=== PATIENT | female | born 1985 | race American Indian/Alaskan Native ===

== ENCOUNTER 2021-04-17 07:17 | Inpatient (IN) | payer MEDICAID ==
[2021-04-17] MEDS ORDERED: Sodium Chloride 0.9% 10 ML Syringe FLUSH PRN (07:46)
[2021-04-17] MEDS ORDERED: Lidocaine 1% 50 ML MDV INJECT PRN (07:46)
[2021-04-17] MEDS ORDERED: Nalbuphine 10 MG/1 ML Vial IVPUSH PRN (07:46)
[2021-04-17] MEDS ORDERED: Oxytocin/Lactated Ringers 10 UNIT/1,000 ML BAG IV SCH (08:00)
[2021-04-17] MEDS ORDERED: Lactated Ringers 1,000 ML IV SCH (08:00)
--- NOTE | 2021-04-17 08:56 | PCM.LDHP ---
L&D History of Present Illness - General Date of Service: 04/17/21 Admit Problem/Dx: Patient Status Order with Admit Dx/Problem 04/17/21 08:24 Admission Status [Patient Status] [ADT] Routine Admission Diagnosis/Problem Admission Diagnosis/Problem - History of Present Illness Introduction:: 36 year old female here in active labor at 41 weeks. Sparse care with myself complicated by elevated one hour no three hour. Ultrasound in third trimester did not demonstrate macrosomia. - Related Data Allergies/Adverse Reactions: Allergies Allergy/AdvReac Type Severity Reaction Status Date / Time No Known Allergies Allergy Verified 04/17/21 07:28 H&P Review of Systems - Review of Systems: Review Of Systems: See Below General: Reports: No Symptoms HEENT: Reports: No Symptoms Pulmonary: Reports: No Symptoms Cardiovascular: Reports: No Symptoms Gastrointestinal: Reports: No Symptoms Genitourinary: Reports: No Symptoms Musculoskeletal: Reports: No Symptoms Skin: Reports: No Symptoms Psychiatric: Reports: No Symptoms Neurological: Reports: No Symptoms Hematologic/Lymphatic: Reports: No Symptoms Immunologic: Reports: No Symptoms L&D Exam - Exam Exam: See Below - Vital Signs Vital Signs: Last Vital Signs Temp Pulse 89 04/17/21 08:30 Resp BP Pulse Ox Weight: 99.337 kg - OB Specific Contraction Intensity: Strong Movement: Active Heart Tones: Present Heart Rate (FHR) Variability: Moderate (6-25 bmp) Presentation: Vertex - Ng Score Ng Score Cervix Position: Anterior Ng Score Effacement: >80% Ng Score Dilation: 1-2 cm Ng Score 's Station: -3 - Exam General: Alert, Oriented HEENT: PERRLA, Conjunctiva Clear, EACs Clear, EOMI, Hearing Intact, Mucosa Moist & [place], Nares Patent, Normal Nasal Septum, Posterior Pharynx Clear, TMs Clear Neck: Supple, Trachea Midline Lungs: Clear to Auscultation, Normal Respiratory Effort Cardiovascular: Regular Rate, Regular Rhythm GI/Abdominal Exam: Normal Bowel Sounds, Soft, Non-Tender, No Organomegaly, No Distention, No Abnormal Bruit Back Exam: Normal Inspection Extremities: Normal Inspection, Normal Range of Motion, Non-Tender, No Pedal Edema, Normal Capillary Refill Skin: Warm, Dry, Intact Neurological: Cranial Nerves Intact, Reflexes Equal Bilateral Psychiatric: Alert, Normal Affect, Normal Mood - Patient Data Lab Results Last 24 hrs: Laboratory Results - last 24 hr 04/17/21 04/17/21 Range/Units 07:40 08:09 WBC 9.07 (3.98-10.04) K/mm3 RBC 3.90 L (3.98-5.22) M/mm3 Hgb 10.7 L (11.2-15.7) gm/dl Hct 33.2 L (34.1-44.9) % MCV 85.1 (79.4-94.8) fl MCH 27.4 (25.6-32.2) pg MCHC 32.2 (32.2-35.5) g/dl RDW Std Deviation 45.4 (36.4-46.3) fL Plt Count 300 (182-369) K/mm3 MPV 10.7 (9.4-12.3) fl Neut % (Auto) 66.0 (34.0-71.1) % Lymph % (Auto) 28.7 (19.3-51.7) % [place] % (Auto) 3.9 L (4.7-12.5) % Eos % (Auto) 0.9 (0.7-5.8) Baso % (Auto) 0.3 (0.1-1.2) % Neut # (Auto) 5.99 (1.56-6.13) K/mm3 Lymph # (Auto) 2.60 (1.18-3.74) K/mm3 [place] # (Auto) 0.35 (0.24-0.36) K/mm3 Eos # (Auto) 0.08 (0.04-0.36) K/mm3 Baso # (Auto) 0.03 (0.01-0.08) K/mm3 SARS-CoV-2 RNA (MERRY) Negative (NEGATIVE) Result Diagrams: 04/17/21 08:09 Problem List Initiated/Reviewed/Updated: Yes Orders Last 24hrs: Active Orders 24 hr Category Date Time Status Admission Status [Patient Status] [ADT] Routine ADT 04/17/21 08:24 Active Activity as Tolerated [RC] PFP Care 04/17/21 07:46 Active Communication Order [RC] ASDIRECTED Care 04/17/21 07:46 Active Heart Tones [RC] ASDIRECTED Care 04/17/21 07:48 Active Notify Provider [RC] PFP Care 04/17/21 07:46 Active Notify Provider [RC] PRN Care 04/17/21 07:46 Active Peripheral IV Care [RC] . DIRECTED Care 04/17/21 07:48 Active Vital Signs [RC] PER UNIT ROUTINE Care 04/17/21 07:28 Active Regular Diet [DIET] Diet 04/17/21 Breakfast Active RAPID PLASMA REAGIN,RPR [CHEM] Routine Lab 04/17/21 08:09 Received Lactated Ringers [Ringers, Lactated] 1,000 ml Med 04/17/21 08:00 Active IV ASDIRECTED Lidocaine 1% [Xylocaine 1%] Med 04/17/21 07:46 Active 50 ml INJECT ONETIME PRN Nalbuphine [Nubain] Med 04/17/21 07:46 Active 10 mg IVPUSH Q2H PRN Oxytocin/Lactated Ringers [Pitocin in LR 10 Units/1,000 Med 04/17/21 08:00 Active ML] 10 unit in 1,000 ml IV .CONTINUOUS Sodium Chloride 0.9% [Saline Flush] Med 04/17/21 07:46 Active 10 ml FLUSH ASDIRECTED PRN Electronic Heart Tones Ext w TOCO [WOMSER] Oth 04/17/21 07:46 Ordered Routine Electronic Heart Tones Internal [WOMSER] Per Unit Oth 04/17/21 07:46 Ordered Routine Peripheral IV Insertion Adult [OM.PC] Routine Oth 04/17/21 07:46 Ordered Resuscitation Status Routine Resus Stat 04/17/21 07:28 Ordered Medication Orders Lactated Ringer's (Ringers, Lactated) 1,000 mls @ 100 mls/hr IV ASDIRECTED JACQUES Oxytocin/Lactated Ringer's (Pitocin In Lr 10 Units/1,000 Ml) 10 unit in 1,000 mls @ 500 mls/hr IV .CONTINUOUS JACQUES Lidocaine HCl (Lidocaine 1% 50 Ml Mdv) 50 ml INJECT ONETIME PRN PRN Reason: Pain Nalbuphine HCl (Nalbuphine 10 Mg/1 Ml Vial) 10 mg IVPUSH Q2H PRN PRN Reason: Pain Sodium Chloride (Sodium Chloride 0.9% 10 Ml Syringe) 10 ml FLUSH ASDIRECTED PRN PRN Reason: Keep Vein Open Assessment/Plan Comment:: Term labor. AROM clear fluid. Anesthesia per patient request. Anticipate
[2021-04-17] MEDS ORDERED: Calcium Carbonate 500 MG Tab.Chew PO PRN (09:44)
--- NOTE | 2021-04-17 14:23 | PCM.SN.2 ---
- Free Text/Narrative Note: Stage I - Patient presented for labor. AROM clear fluid. Progressed to complete with overall reassuring heart tones. Stage II - of viable female, weight 7#14, 8/9 at 1330. Head delivered in controlled manner over intact perineum. Body and shoulders atraumatically. To maternal abdomen. Positive cry. Cord clamped and cut. Cord blood collected. Stage III - of intact placenta. 3vc. Small second degree laceration. Repaired with 3-0 vicryl. EBL 175.
[2021-04-17] MEDS ORDERED: Benzocaine/Menthol 20%-0.5% Spray 56 GM Canister TOP PRN (14:45)
[2021-04-17] MEDS ORDERED: Witch Hazel Medicated Pads 40/Jar TOP PRN (14:45)
[2021-04-17] MEDS: Ibuprofen 600 MG Tab PO PRN (18:39)
[2021-04-18] MEDS: Ibuprofen 600 MG Tab PO PRN ×2 (02:40→09:19)
--- NOTE | 2021-04-18 04:50 | PCM.DCSUM1 ---
Discharge Summary - Hospital Course Diagnosis: Stroke: No - Discharge Data Discharge Date: 04/18/21 Discharge Disposition: Home, Self-Care 01 Condition: Good - Referral to Home Health Primary Care Physician: Rajwinder Jc MD - Patient Instructions Diet: Usual Diet as Tolerated Activity: No Strenuous Activities Driving: May Drive Today Showering/Bathing: May Shower Wound/Incision Care: Keep Operative Site/Wound Site Clean and Dry Notify Provider of: Fever, Increased Pain, Swelling and Redness, Drainage, Nausea and/or Vomiting - Discharge Plan *PRESCRIPTION DRUG MONITORING PROGRAM REVIEWED*: No *COPY OF PRESCRIPTION DRUG MONITORING REPORT IN PATIENT THANG: No Home Medications: Home Meds Pnv,Calcium 72/Iron/Folic Acid [ Vitamin Plus Low Iron] 1 tab PO DAILY 04/17/21 [History] Referrals: Rajwinder Jc MD [Primary Care Provider] - (2 weeks) - Discharge Summary/Plan Comment DC Time >30 min.: No - General Info Date of Service: 04/18/21 Functional Status: Reports: Pain Controlled - Review of Systems General: Reports: No Symptoms HEENT: Reports: No Symptoms Pulmonary: Reports: No Symptoms Cardiovascular: Reports: No Symptoms Gastrointestinal: Reports: No Symptoms Genitourinary: Reports: No Symptoms Musculoskeletal: Reports: No Symptoms Skin: Reports: No Symptoms Neurological: Reports: No Symptoms Psychiatric: Reports: No Symptoms - Patient Data Vitals - Most Recent: Last Vital Signs Temp 36.6 C 04/18/21 02:45 Pulse 66 04/18/21 02:45 Resp 14 04/18/21 02:45 BP 96/65 04/18/21 02:45 Pulse Ox 95 04/18/21 02:45 Weight - Most Recent: 99.337 kg I&O - Last 24 hours: Intake & Output 04/17/21 04/17/21 04/18/21 14:59 22:59 06:59 Intake Total 1000 Balance 1000 Lab Results - Last 24 hrs: Laboratory Results - last 24 hr 04/17/21 04/17/21 04/17/21 Range/Units 07:40 08:09 08:09 WBC 9.07 (3.98-10.04) K/mm3 RBC 3.90 L (3.98-5.22) M/mm3 Hgb 10.7 L (11.2-15.7) gm/dl Hct 33.2 L (34.1-44.9) % MCV 85.1 (79.4-94.8) fl MCH 27.4 (25.6-32.2) pg MCHC 32.2 (32.2-35.5) g/dl RDW Std Deviation 45.4 (36.4-46.3) fL Plt Count 300 (182-369) K/mm3 MPV 10.7 (9.4-12.3) fl Neut % (Auto) 66.0 (34.0-71.1) % Lymph % (Auto) 28.7 (19.3-51.7) % [place] % (Auto) 3.9 L (4.7-12.5) % Eos % (Auto) 0.9 (0.7-5.8) Baso % (Auto) 0.3 (0.1-1.2) % Neut # (Auto) 5.99 (1.56-6.13) K/mm3 Lymph # (Auto) 2.60 (1.18-3.74) K/mm3 [place] # (Auto) 0.35 (0.24-0.36) K/mm3 Eos # (Auto) 0.08 (0.04-0.36) K/mm3 Baso # (Auto) 0.03 (0.01-0.08) K/mm3 RPR Non-reactive (NONREACTIVE) SARS-CoV-2 RNA (MERRY) Negative (NEGATIVE) Med Orders - Current: Current Medications Benzocaine/Menthol (Benzocaine/Menthol 20%-0.5% [place] 56 Gm Canister) 0 gm TOP ASDIRECTED PRN PRN Reason: Perineal Comfort Measure Last Admin: 04/17/21 18:39 Dose: 1 can Documented by: Ibuprofen (Ibuprofen 600 Mg Tab) 600 mg PO Q6H PRN PRN Reason: Mild pain or fever Last Admin: 04/18/21 02:40 Dose: 600 mg Documented by: Duane Angeles (Duane Angeles Medicated Pads 40/Jar) 1 pad TOP ASDIRECTED PRN PRN Reason: Perineal Comfort Measure Discontinued Medications Calcium Carbonate/Glycine (Calcium Carbonate 500 Mg Tab.Chew) 1,000 mg PO Q2H PRN PRN Reason: Indigestion Last Admin: 04/17/21 09:59 Dose: 1,000 mg Documented by: Lactated Ringer's (Ringers, Lactated) 1,000 mls @ 100 mls/hr IV ASDIRECTED JACQUES Oxytocin/Lactated Ringer's (Pitocin In Lr 10 Units/1,000 Ml) 10 unit in 1,000 mls @ 500 mls/hr IV .CONTINUOUS JACQUES Last Admin: 04/17/21 13:31 Dose: 500 mls/hr Documented by: Lidocaine HCl (Lidocaine 1% 50 Ml Mdv) 50 ml INJECT ONETIME PRN PRN Reason: Pain Last Admin: 04/17/21 13:35 Dose: 10 ml Documented by: Nalbuphine HCl (Nalbuphine 10 Mg/1 Ml Vial) 10 mg IVPUSH Q2H PRN PRN Reason: Pain Sodium Chloride (Sodium Chloride 0.9% 10 Ml Syringe) 10 ml FLUSH ASDIRECTED PRN PRN Reason: Keep Vein Open - Exam General: Reports: Alert, Oriented HEENT: Reports: Pupils Equal, Pupils Reactive, EOMI, Mucous Membr. Moist/[place] Neck: Reports: Supple Lungs: Reports: Clear to Auscultation, Normal Respiratory Effort Cardiovascular: Reports: Regular Rate, Regular Rhythm GI/Abdominal Exam: Normal Bowel Sounds, Soft, Non-Tender, No Organomegaly (Female) Exam: Normal External Exam Rectal (Female) Exam: Normal Exam Back Exam: Reports: Normal Inspection, Full Range of Motion Extremities: Normal Inspection, Normal Range of Motion, Non-Tender, No Pedal Edema Skin: Reports: Warm, Dry Neurological: Reports: No New Focal Deficit Psy/Mental Status: Reports: Alert, Normal Affect, Normal Mood
[2021-04-18] MEDS ORDERED: Acetaminophen 325 MG Tab PO PRN (06:57)
== END 2021-04-18 14:39 | disposition home or self-care (01) | DRG 807 ==
LOC: JD.OBCHECK 07:17 → JD.OB 07:19 → JD.OBCHECK 08:23 → JD.OB 08:24 → OBSVTOIN 13:30 → JD.OB 13:55
PROVIDERS: ADMIT Obstetrics & Gynecology; ATTEND Obstetrics & Gynecology
PROC: 10E0XZZ Delivery of Products of Conception, External Approach (ICD-10-PCS; principal; 2021-04-17)
PROC: 0KQM0ZZ Repair Perineum Muscle, Open Approach (ICD-10-PCS; 2021-04-17)
PROC: 10907ZC Drainage of Amniotic Fluid, Therapeutic from Products of Conception, Via Natural or Artificial Opening (ICD-10-PCS; 2021-04-17)
DX: O48.0 Post-term pregnancy (principal); Z37.0 Single live birth; Z3A.41 41 weeks gestation of pregnancy; Z20.822 Contact with and (suspected) exposure to COVID-19
CPT/HCPCS: 36415; 59025; 59409; 85025; 86592; A9270-GY; J2001; J2590; U0002